=== PATIENT | male | born 1960 | race Hispanic/Latino ===

== ENCOUNTER 2021-12-14 09:16 | Inpatient (IN) | payer OTHER, SELFPAY ==
[2021-12-14] MEDS ORDERED: Aspirin Chewable 81 MG TAB ONE (09:31)
[2021-12-14] MEDS ORDERED: TICAGRELOR 90 MG TABLET ONE (09:34)
[2021-12-14] MEDS ORDERED: Nitroglycerin 50 MG/250 ML BOT 250 ML ONE (09:35)
[2021-12-14] MEDS ORDERED: Adenosine 6 MG/2 ML VIAL ONE (09:36)
[2021-12-14] MEDS ORDERED: Lidocaine 1% 20 ML MDV ONE (09:38)
[2021-12-14 09:39] LABS: Actual Bicarbonate (HCO3v) 20 mEq/L (22-28); Base Excess -5.7 mEq/L (-2.0 to +3.0); Chloride (VBG) 102 mmol/L (98-106); Hemoglobin (Hb) 10.3 g/dL (13.1-17.2); Potassium (VBG) 3.37 mmol/L (3.70-5.30); Puncture Site Other Site; Sodium 137.5 mmol/L (133-146); pH (venous) 7.31 (7.32-7.43)
[2021-12-14] MEDS ORDERED: Bivalirudin 250 MG VIAL ONE (09:41)
[2021-12-14 09:43] LABS: #Basophils 0.1 10x3/uL (0.0-0.2); #Eosinphils 0.2 10x3/uL (0.0-0.5); #Monocytes 1.1 10x3/uL (0.0-1.1); #Neutrophils 7.4 10x3/uL (1.5-8.4); %Basophils 0.6 % (0.0-2.0); %Eosinophils 1.3 % (0.0-6.0); %Lymphocytes 34.1 % (18.0-47.0); %Monocytes 8.4 % (0.0-10.0); %Neutrophils 55.2 % (40.0-75.0); Hemoglobin 11.3 g/dL (13.5-17.5); Mean Corpuscular HGB CONC 33.5 g/dL (32.0-36.0); Mean Corpuscular Hemoglobin 28.8 pg (27.0-33.0); Mean Platelet Volume 10.4 fl (7.4-10.4); Platelet Count 369 10x3/uL (150-450); RBC Distribution Width 12.3 % (11.5-14.5); Red Blood Cell (RBC) Count 3.92 10x6/uL (4.32-5.72); White Blood Cell (WBC) Count 13.4 10x3/uL (3.5-10.5)
[2021-12-14 09:55] LABS: INR-International Normal Ratio 0.9; PTT 24.5 sec (22.0-33.0)
[2021-12-14] MEDS ORDERED: Iopamidol 300 61% 100 ML VIAL FS ONE (09:57)
[2021-12-14] MEDS ORDERED: Iopamidol 300 61% 50 ML VIAL FS ONE (09:57)
[2021-12-14 09:59] LABS: ALT (SGPT) 20 U/L (8-55); AST (SGOT) 26 U/L (5-34); Albumin 3.7 g/dL (3.5-5.0); Alkaline Phosphatase 104 U/L (40-110); Anion Gap 23 mmol/L (10-20); BUN (Urea Nitrogen) 20 mg/dL (8.4-25.7); Bilirubin, Total 0.7 mg/dL (0.2-1.2); Calc. Creatinine Clearance 0 mL/min (70-130); Calcium 8.9 mg/dL (7.8-10.44); Carbon Dioxide 17 mmol/L (22-29); Chloride 103 mmol/L (98-107); Globulin 2.9 g/dL (2.4-3.5); Glucose 447 mg/dL (70-105); Lipase 29 U/L (8-78); Potassium 3.5 mmol/L (3.5-5.1); Protein, Total 6.6 g/dL (6.0-8.3); Sodium 139 mmol/L (136-145)
[2021-12-14] MEDS ORDERED: Fentanyl 100 MCG/2 ML VIAL ONE (10:08)
[2021-12-14] MEDS ORDERED: Midazolam HCl 2 mg/2 ml Vial ONE (10:08)
[2021-12-14 10:23] LABS: CKMB 3.8 ng/mL (0-6.6)
[2021-12-14 11:53] VITALS: BMI 32.5
[2021-12-14] MEDS ORDERED: Prevnar 13-Val Conj/PF 0.5 ML SYRINGE IM ONE (12:30)
[2021-12-14] MEDS ORDERED: Lisinopril 2.5 MG TAB PO SCH (12:30)
[2021-12-14] MEDS ORDERED: Metoprolol Tartrate 25 MG TAB PO SCH (12:30)
[2021-12-14] MEDS: Sodium Chloride 0.9% 500 ML IV SCH ×3 (12:47→23:45)
[2021-12-14] MEDS: Atorvastatin Calcium 40 MG TAB PO SCH (20:22)
[2021-12-14] MEDS: Metoprolol Tartrate 25 MG TAB PO SCH (20:22)
[2021-12-15] MEDS: Sodium Chloride 0.9% 500 ML IV SCH ×2 (02:45→19:52)
[2021-12-15 05:26] LABS: #Eosinphils 0.1 10x3/uL (0.0-0.5); #Monocytes 0.6 10x3/uL (0.0-1.1); #Neutrophils 5.9 10x3/uL (1.5-8.4); %Basophils 0.5 % (0.0-2.0); %Eosinophils 1.3 % (0.0-6.0); %Lymphocytes 19.4 % (18.0-47.0); %Monocytes 7.4 % (0.0-10.0); %Neutrophils 71.2 % (40.0-75.0); Hemoglobin 9.4 g/dL (13.5-17.5); Mean Corpuscular HGB CONC 33.9 g/dL (32.0-36.0); Mean Corpuscular Hemoglobin 28.9 pg (27.0-33.0); Mean Corpuscular Volume 85.2 fl (81.2-95.1); Mean Platelet Volume 10.1 fl (7.4-10.4); Platelet Count 278 10x3/uL (150-450); RBC Distribution Width 12.4 % (11.5-14.5); Red Blood Cell (RBC) Count 3.25 10x6/uL (4.32-5.72); White Blood Cell (WBC) Count 8.2 10x3/uL (3.5-10.5)
[2021-12-15 05:27] LABS: ALT (SGPT) 13 U/L (8-55); AST (SGOT) 26 U/L (5-34); Alkaline Phosphatase 75 U/L (40-110); Anion Gap 13 mmol/L (10-20); BUN (Urea Nitrogen) 15 mg/dL (8.4-25.7); Bilirubin, Total 0.7 mg/dL (0.2-1.2); Calc. Creatinine Clearance 94 mL/min (70-130); Calcium 8.6 mg/dL (7.8-10.44); Carbon Dioxide 26 mmol/L (22-29); Cardiac Risk 6.2 (Less than 4.5); Chloride 107 mmol/L (98-107); Cholesterol 111 mg/dl (< 200 Desired); Globulin 2.8 g/dL (2.4-3.5); Glucose 240 mg/dL (70-105); HDL Cholesterol 18 mg/dL (>60 Neg Risk); LDL Cholesterol, Calculated 63 mg/dL; Potassium 4.6 mmol/L (3.5-5.1); Protein, Total 5.8 g/dL (6.0-8.3); Sodium 141 mmol/L (136-145); Triglycerides 151 mg/dL (Less than 150)
[2021-12-15] MEDS: Clopidogrel Bisulfate 75 MG TAB PO SCH (08:01)
[2021-12-15] MEDS: Aspirin Chewable 81 MG TAB PO SCH (08:01)
[2021-12-15] MEDS: Lisinopril 2.5 MG TAB PO SCH (08:01)
[2021-12-15] MEDS: Metoprolol Tartrate 25 MG TAB PO SCH (08:01)
[2021-12-15 12:38] LABS: Hemoglobin A1c 10.6 % (4.0-6.0)
[2021-12-15] MEDS: Carvedilol 12.5 MG TAB PO SCH (16:52)
[2021-12-15] MEDS: Atorvastatin Calcium 40 MG TAB PO SCH (20:45)
[2021-12-16] MEDS: Aspirin Chewable 81 MG TAB PO SCH (08:02)
[2021-12-16] MEDS: Lisinopril 2.5 MG TAB PO SCH (08:02)
[2021-12-16] MEDS: Carvedilol 12.5 MG TAB PO SCH ×2 (08:02→16:19)
[2021-12-16] MEDS: Clopidogrel Bisulfate 75 MG TAB PO SCH (08:03)
[2021-12-16] MEDS: Atorvastatin Calcium 40 MG TAB PO SCH (21:04)
[2021-12-17] MEDS: Clopidogrel Bisulfate 75 MG TAB PO SCH (08:15)
[2021-12-17] MEDS: Lisinopril 2.5 MG TAB PO SCH (08:15)
[2021-12-17] MEDS: Carvedilol 12.5 MG TAB PO SCH (08:15)
[2021-12-17] MEDS: Aspirin Chewable 81 MG TAB PO SCH (08:15)
[2021-12-17 11:50] VITALS: BP 136/73; TEMP 97.7
== END 2021-12-17 15:03 | disposition home or self-care (01) | DRG 247 ==
LOC: CSHERS 09:16 → CSHICU 11:07 → EDBD 11:07 → CSHTELE 12-16 17:10
PROVIDERS: ADMIT Specialist; ATTEND Specialist
PROC: 027034Z Dilation of Coronary Artery, One Artery with Drug-eluting Intraluminal Device, Percutaneous Approach (ICD-10-PCS; principal; 2021-12-14)
PROC: 4A023N7 Measurement of Cardiac Sampling and Pressure, Left Heart, Percutaneous Approach (ICD-10-PCS; 2021-12-14)
PROC: B2111ZZ Fluoroscopy of Multiple Coronary Arteries using Low Osmolar Contrast (ICD-10-PCS; 2021-12-14)
PROC: B2151ZZ Fluoroscopy of Left Heart using Low Osmolar Contrast (ICD-10-PCS; 2021-12-14)
DX: I21.19 ST elevation (STEMI) myocardial infarction involving other coronary artery of inferior wall (principal); E11.9 Type 2 diabetes mellitus without complications; I10 Essential (primary) hypertension; I25.10 Atherosclerotic heart disease of native coronary artery without angina pectoris; E78.5 Hyperlipidemia, unspecified; I25.5 Ischemic cardiomyopathy; Z79.84 Long term (current) use of oral hypoglycemic drugs; Z79.899 Other long term (current) drug therapy
CPT/HCPCS: 36415; 71045; 80053; 80061; 82553; 82805; 83036; 83690; 84484; 85025; 85610; 85730; 86850; 86900; 86901; 92941; 92978; 93005; 93010; 93306; 93458; 97139; 99152; 99153; C1725; C1726; C1753; C1769; C1874; C9606; J0153; J0583; J2250; J3010; J7050; Q9967; U0003; U0005